=== PATIENT | male | born 1975 | race Caucasian/White ===

== ENCOUNTER 2022-08-21 11:28 | Outpatient (CLI) | payer OTHER, SELFPAY ==
--- NOTE | ~2022-08-21 | XR_ITS ---
XR lumbar spine min 4V DATE: 08/21/2022 12:03 INDICATION: Right low back pain TECHNIQUE: AP, lateral, bilateral oblique views, coned lateral lumbosacral view COMPARISON: None FINDINGS: There are bilateral L5 pars intra-articular is defects with associated grade 1 anterolisthe sis at L5 as one. Mild degenerative disease at L2-3, L3-4 and moderately prominent degenerative disc disease at L4-5 an d L5-S1. Included lower thoracic and lumbar pedicles are intact. The lumbar spine fracture or bone destruction is noted. The sacroiliac joints are intact. IMPRESSION: Bilateral L5 pars interarticularis defects and associated grade 1 anterolisthesis at L5-S 1 Moderately prominent degenerative disease at L4-5 and L5-S1, mild degenerative disease at L2-3 and L3 -4 Reviewed, dictated and finalized at location L. T SALES MANAGER IMPRESSION: Bilateral L5 pars interarticularis defects and associated grade 1 a nterolisthesis at L5-S1 Moderately prominent degenerative disease at L4-5 and L5-S1, mild degenerative disease at L2-3 and L3-4
== END 2022-08-21 11:29 | disposition home or self-care (01) ==
PROVIDERS: PCP Family Medicine; Visit Provider Family Medicine
DX: M53.3 Sacrococcygeal disorders, not elsewhere classified (principal); M54.16 Radiculopathy, lumbar region; M51.36 Other intervertebral disc degeneration, lumbar region
CPT/HCPCS: 72110

== ENCOUNTER 2022-09-30 09:26 | Outpatient (CLI) | payer OTHER, SELFPAY ==
--- NOTE | ~2022-09-30 | XR_ITS ---
XR cervical spine 4-5V 09/30/2022 09:57 Indication: Neck pain and tingling Procedure: 5 view cervical spine Comparison: No prior studies for comparison. Findings: There is straightening of cervical lordosis. No prevertebral soft tissue swelling. There is facet hypertrophy at C3-4, C4-5 and C5-6. No significant uncinate abnormalities. No fracture or trau matic malalignment. Lung apices are unremarkable. Impression: 1: Moderate cervical spondylosis primarily involving the facet joints. Reviewed, dictated and finalized at location L. LOGY TECHNICIAN Impression: 1: Moderate cervical spondylosis primarily involving the facet joints.
== END 2022-09-30 09:27 | disposition home or self-care (01) ==
PROVIDERS: PCP Family Medicine; Visit Provider Family Medicine
DX: M47.22 Other spondylosis with radiculopathy, cervical region (principal)
CPT/HCPCS: 72050

== ENCOUNTER 2023-11-04 01:11 | Day surgery (SDC) | payer OTHER, SELFPAY ==
[2023-10-26 09:56] VITALS: BMI 34.2
--- NOTE | 2023-11-02 12:41 | SUR.PREOP ---
Patient called regarding upcoming procedure. Voicemail left regarding appointment times.
[2023-11-04 10:36] VITALS: BP 135/88; PULSE 64; RESP 16; TEMP 36.1; O2SAT 98; BMI 34.4
--- NOTE | 2023-11-04 10:51 | WPDANESEPPF ---
Anes - Initial Pre Proc Eval Procedure: Operation Date: 11/04/23 12:30 Proposed Procedures p Esophagogastroduodenoscopy - Donavan Pruitt MD Date/Time: 11/04/23 10:51 Surgeon: Donavan Pruitt MD Pre Op Diagnosis: vomiting,Epigastric pain Patient Data Age: 48 Gender: M Height: 1.68 m Weight: 96.9 kg Last Vital Signs Temp 97.0 F L 11/04/23 10:36 Pulse 64 11/04/23 10:36 Resp 16 11/04/23 10:36 BP 135/88 11/04/23 10:36 Pulse Ox 98 11/04/23 10:36 O2 Del Method Room Air 11/04/23 10:36 Allergies Allergy/AdvReac Type Severity Reaction Status Date / Time ketoconazole Allergy Mild rash Verified 11/04/23 10:43 Penicillins Allergy Mild hives Verified 11/04/23 10:43 NKFA Allergy Unknown unknown Uncoded 11/04/23 10:43 Home Medications Medication Instructions Recorded Confirmed Type lisinopril 10 mg tablet 10 mg PO DAILY #90 tabs 07/31/23 11/04/23 Rx albuterol sulfate 90 mcg/actuation 2 inh inhalation .before exercises 09/08/23 11/04/23 Rx aerosol inhaler #8.5 grams baclofen 10 mg PO TID 10/26/23 11/04/23 History gabapentin 300 mg capsule 300 mg PO TID 10/26/23 11/04/23 History pantoprazole 40 mg tablet,delayed 40 mg PO DAILY 10/26/23 11/04/23 History release tizanidine 4 mg tablet 4 mg PO DAILY 10/26/23 11/04/23 History Patient hx anesthesia problems: none Family hx anesthesia problems: none Results Review: All pre-operative results and documents have been reviewed as part of the pre-operative evaluation. [facility] Past Medical History Medical History Exercise induced bronchospasm Family History Family History Mother Hypertension Grandparent Cerebrovascular accident, Onset Age: 63 Other Hyperlipidemia Social History Social History Social History: Years smoked: 20 Smoking status: Former smoker Tobacco type: cigarettes Second hand tobacco smoke exposure: No Alcohol intake: current Drinks per week: 12 Substance use: current Substance use type: marijuana Last use: 10/23/23 Lack of Transportation: No Lack of Food: Never True Current Housing: I Have Housing Concerned About Future Housing: No Difficulty Paying Gas/Electric Bills: No Difficulty Paying for Meds: No Currently Unemployed: No Education: Decline to Answer Difficulty w/ Childcare or Family Care: No Living arrangements: with family Occupation/Education: occupation Gender identity (if verbalized by the patient): Male Sexual Orientation (if Verbalized by the Patient): Straight or Heterosexual Spiritual care concerns: No Anes - Eval Final PreProcedure Day of Procedure 11/04/23 10:51 Patient weight: obese Heart: regular rate and rhythm Lungs: clear to auscultation Airway: Mallampati scale class II Neurological: alert and oriented Last oral intake: >/= 8 hours ASA classification: III Emergent: no Anesthetic plan: proceed Anesthesia type and monitoring: general GIVS and standard monitoring Results Review: All pre-operative results and documents have been reviewed as part of the pre-operative evaluation. Informed Consent: The patient's anesthetic plan and its attendant risks and benefits were discussed with the patient/family/POA. Questions were solicited and answers provided to the satisfaction of the patient/family/POA.
[2023-11-04] MEDS: LACTATED RINGERS 1,000 ML 150 ML IV CONT (11:03)
--- NOTE | 2023-11-04 11:27 | PM.HPGS ---
History of Present Illness History of Present Illness Consent: Risks, benefits, and alternatives have been discussed and questions answered. Patient agrees to proceed with procedure. Chief complaint: vomiting,Epigastric pain Narrative: Elio Chicas is a 48 year old male with cyclic vomiting every 3 months, this has been going on for 1 year, on pantoprazole that helps some. When he has violent n/v will last 1 day followed by sweating for another day. He smokes marijuana on the weekends. Review of Systems Review of Systems: All systems reviewed & are unremarkable except as noted in HPI and below PMFSH Past Medical History Medical History (Updated 11/04/23 @ 11:28 by Donavan Pruitt MD) Cyclic vomiting syndrome Exercise induced bronchospasm Family History Family History Mother Hypertension Grandparent Cerebrovascular accident, Onset Age: 63 Other Hyperlipidemia Social History Social History Social History: Years smoked: 20 Smoking status: Former smoker Tobacco type: cigarettes Second hand tobacco smoke exposure: No Alcohol intake: current Drinks per week: 12 Substance use: current Substance use type: marijuana Last use: 10/23/23 Lack of Transportation: No Lack of Food: Never True Current Housing: I Have Housing Concerned About Future Housing: No Difficulty Paying Gas/Electric Bills: No Difficulty Paying for Meds: No Currently Unemployed: No Education: Decline to Answer Difficulty w/ Childcare or Family Care: No Living arrangements: with family Occupation/Education: occupation Gender identity (if verbalized by the patient): Male Sexual Orientation (if Verbalized by the Patient): Straight or Heterosexual Spiritual care concerns: No Meds Home Medications and Allergies Home Medications Medication Instructions Recorded Confirmed Type lisinopril 10 mg tablet 10 mg PO DAILY #90 tabs 07/31/23 11/04/23 Rx albuterol sulfate 90 mcg/actuation 2 inh inhalation .before exercises 09/08/23 11/04/23 Rx aerosol inhaler #8.5 grams baclofen 10 mg PO TID 10/26/23 11/04/23 History gabapentin 300 mg capsule 300 mg PO TID 10/26/23 11/04/23 History pantoprazole 40 mg tablet,delayed 40 mg PO DAILY 10/26/23 11/04/23 History release tizanidine 4 mg tablet 4 mg PO DAILY 10/26/23 11/04/23 History Allergies Allergy/AdvReac Type Severity Reaction Status Date / Time ketoconazole Allergy Mild rash Verified 11/04/23 10:43 Penicillins Allergy Mild hives Verified 11/04/23 10:43 NKFA Allergy Unknown unknown Uncoded 11/04/23 10:43 Vital Signs Vital Signs - 24 hr 11/04/23 10:36 Temperature 97.0 F L Pulse Rate 64 Respiratory Rate 16 Blood Pressure 135/88 Pulse Oximetry 98 Oxygen Delivery Room Air Exam Const: General: comfortable and no acute distress HENMT: Face/Nose/Sinus: Normal nares present Eyes: General: appearance normal, both eyes and all related structures Neck: Neck: no JVD Resp: Auscultation: clear to auscultation bilaterally Cardio: Rate: regular rate Rhythm: regular rhythm GI: Inspection: non-distended GI Palp: Yes Soft to palpation Skin: General skin exam: normal color Neuro: General: gait normal Speech: normal speech Extrem: General: normal to inspection Psych: Mental Status: mental status grossly normal Assessment and Plan Assessment and plan (1) Cyclic vomiting syndrome: Code(s): R11.15 - Cyclical vomiting syndrome unrelated to migraine Status: Acute Assessment and Plan: egd with biopsies wonder if could be related to marijuana use
[2023-11-04 11:46] VITALS: BP 111/68; PULSE 62; RESP 18; TEMP 36.1; O2SAT 98
[2023-11-04 11:56] VITALS: BP 120/77; PULSE 66; RESP 14; O2SAT 99
[2023-11-04 12:06] VITALS: BP 133/75; PULSE 58; RESP 14; O2SAT 100
== END 2023-11-04 12:19 | disposition home or self-care (01) ==
PROVIDERS: PCP Family Medicine; Visit Provider Internal Medicine Gastroenterology
PROC: 0DJ08ZZ Inspection of Upper Intestinal Tract, Via Natural or Artificial Opening Endoscopic (ICD-10-PCS; CPT 43235; principal; 2023-11-04 12:30)
DX: R11.15 Cyclical vomiting syndrome unrelated to migraine (principal); F12.90 Cannabis use, unspecified, uncomplicated; Z87.891 Personal history of nicotine dependence; Z79.51 Long term (current) use of inhaled steroids; E66.9 Obesity, unspecified; Z68.34 Body mass index [BMI] 34.0-34.9, adult
CPT/HCPCS: 43239; 88305; J2704; J7120

== ENCOUNTER 2025-05-25 02:30 | Day surgery (SDC) | payer OTHER, SELFPAY ==
[2025-05-18 13:40] VITALS: BMI 31.8
--- OUTSIDE RECORDS SUMMARY | 2025-05-25 02:34 | XMS_ITS | Clinical Summary ---
Author Organization [facility] [address] Address [address] [place] [address] Care Team Providers Care Bell Ringer Name Role Phone Jaquelin Burks MD Primary Care Provider Allergies Active Allergy Reactions Criticality Noted Date Comments Penicillins Medications albuterol HFA (PROVENTIL HFA,VENTOLIN HFA,PROAIR HFA) 90 mcg/actuation inhaler Inhale 1 puff every 8 (eight) hours as needed for wheezing [address] (PROTONIX) 40 mg EC tablet Take 1 tablet (40 mg total) by mouth daily Active acetaminophen 500 mg capsule Take 2 capsules (1,000 mg total) by mouth every 6 (six) hours 120 tablet 3 Active Additional Information Patient taking differently:1,000 mg oral Every 6 hours,PRN FOR PAIN, Informant: Self, Reported on 12/24/2023 lisinopriL (PRINIVIL,ZESTR VA) 10 mg tablet 4 Active Active Problems Problem Noted Date Diagnosed Date S/P lumbar fusion 06/22/2023 S/P lumbar spinal fusion 06/22/2023 At risk for obstructive sleep apnea 06/17/2023 Asthma 06/17/2023 Smoker 06/17/2023 Spondylolisthesis of lumbar region 05/29/2023 Spondylolisthesis of lumbosacral region 03/24/20 Spinal stenosis of lumbar region with radiculopa thy 03/24/2023 Essential hypertension 07/30/2020 BMI 32.0-32.9,adult 07/30/2020 Immunizations Immunization Administration Dates Next Due Influenza, Quadrivalent, Spl it, Preservative Free, Intramuscular 06/25/2023(Deferred: Patient Refused) Surgical History Surgery Date Site/Laterality Comments VASECTOMY WISDOM TOOTH EXTRACTION SPINAL FUSION 06/23/2023 PSF L4-S1 Medical History Medical History Date Comments Hypertension Hypertension Heart murmur Asthma Atrial septal aneurysm Per Dr. Christy raymundo: no color flow across the septum to suggest ASD. The right heart chambers are normal in size. Normal function GERD (gastroesophageal reflux disease) Family History Medical History Relation Name Comments No Known Problems Father Stroke Maternal Grandfather Stefano Callejas Alzheimer's disease Maternal Grandmother uLcia Callejas No Known Problems Mother Relation Name Status Comments Father Alive Maternal Grandfather Stefano Callejas Maternal Grandmother Lucia Callejas Mother Alive Social History Tobacco Use Types Packs/Day Years Used Date Smoking Tobacco: Former Cigarettes 0.5 24 0 08/03/1993 - 08/03/2017 Smokeless Tobacco: Never Tobacco Cessation:Counseling Given: Not Answered Comments:Still chewing nicotine gum. Ready to quit Alcohol Use Standard Drinks/Week Comments Yes 6 (1 standard drink = 0.6 oz pur e alcohol) 4-6 AUDIT-C Answer Date Recorded Q1: How often do you have a drink containing alc ohol? 2-3 times a week 06/22/2023 Average Number of Drinks Not on file 023 Frequency of Binge Drinking Not on file 06/04 Personal Safety Answer Date Recorded Have you ever been in or are you currently in a harmful physical or emotional relationship or is someone making you feel afraid or unsafe? 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 Gender Identity Not on file Sexual Orientation Not on file Obstetrics History Last Filed Vital Signs Vital Sign Reading Time Taken Comments Blood Pressure 143/76 06/25/2023 7:40 AM EQUAL OPPORTUNITY SPECIALIST Pulse 83 06/25/2023 7:40 AM EQUAL OPPORTUNITY SPECIALIST Temperature 37.2 C (98.9 F) 06/25/2023 7:40 AM EQUAL OPPORTUNITY SPECIALIST Respiratory Rate 16 06/25/2023 7:40 AM EQUAL OPPORTUNITY SPECIALIST Oxygen Saturation 97% 06/25/2023 7:40 AM EQUAL OPPORTUNITY SPECIALIST Inhaled Oxygen Concentration - - Weight 89.3 kg (196 lb 12.8 oz) 06/22/2023 5:00 AM EQUAL OPPORTUNITY SPECIALIST Height 170.2 cm (5' 7) 06/22/2023 5:00 AM EQUAL OPPORTUNITY SPECIALIST Body Mass Index 30.82 06/22/2023 5:00 AM EQUAL OPPORTUNITY SPECIALIST Plan of Treatment Health Maintenance Due Date Last Done Comments Colon Cancer Screening-Colonoscopy 1975 Depression Screening 1975 Hepatitis C Screening 1975 DTaP/Tdap/Td Vaccine (1 - Tdap) 1986 Hepatitis B Screening 1993 Regular Well Visit/Exam 18-64 1993 Pneumococcal vaccine <65 (1 of 2 - PCV) 1994 Covid-19 Vaccine (3 - season) 2025, 11/22/2020 Influenza Vaccine (#1) 2025 Medical Devices Implanted Type Area Rubber Curer Device Identifier Shelf Expiration Date Model / Serial / Lot Allosource Freeze Dried Crushed 1-4mm Graft 15ml Bone Cancellous [id number] - [id number] Implanted:Qty : 1 on 06/22/2023 by Catracho Perkins MD at [facility] Bone N/A: Spine Lumbar Allosource 02/20/2027 [id number] / / [id number] Description:Implant pause pe rformed Allosource 1-4mm Freeze Dried Crushed Graft 30ml Bone Cancellous [id number] - [id number] Implanted:Qty : 1 on 06/23/2023 by Catracho Perkins MD at [facility] Bone N/A: Spine Lumbar Allosource 06/30/2027 [id number] / / [id number] Description:Implant pause pe rformed Allosource 1-4mm Freeze Dried Crushed Graft 30ml Bone Cancellous [id number] - [id number] Implanted:Qty : 1 on 06/23/2023 by Catracho Perkins MD at [facility] Bone N/A: Spine Lumbar Allosource 03/07/2027 [id number] / / [id number] Description:Implant pause pe rformed Med[employer]onic [employer] Bmp Infuse Sm [id number] - [id number] Implanted:Qty : 1 on 06/22/2023 by Catracho Perkins MD at [facility] Other - see comments N/A: Spine Lumbar Medtronic Inc 01/01/2025 [id number] / / [id number] Description:Implant pause pe rformed [employer] Spacer [place] [id number] 15mm 25deg 1212.0915s - [id number] Implanted:Qty : 1 on 06/22/2023 by Catracho Perkins MD at [facility] Other - see comments N/A: Spine Lumbar [employer] [id number] 06/03/2031 1212.0915S / / [id number] Description:Implant pause pe rformed [employer] Bmp Infuse Sm [id number] - [id number] Implanted:Qty : 1 on 06/23/2023 by Catracho Perkins MD at [facility] Other - see comments N/A: Spine Lumbar Medtronic Inc 01/01/2025 [id number] / / [id number] Description:Implant pause pe rformed [employer] Creo Thread Spinal Cap Locking Nonsterile 1119.0010 - [id number] Implanted:Qty : 7 on 06/23/2023 by Catracho Perkins MD at [facility] Other - see comments N/A: Spine Lumbar [employer] 1119.0010 / / Description:Implant pause pe rformed [employer] Creo Od6.5 Mm L50 Mm Thread Polyaxial Spine Screw Bone Titanium 5146.1652 - [id number] Implanted:Qty : 3 on 06/23/2023 by Catracho Perkins MD at [facility] Screw N/A: Spine Lumbar [employer] 5146.1652 / / Description:Implant pause pe rformed [employer] Creo Od6.5 Mm L55 Mm Thread Polyaxial Spine Screw Bone Titanium 5146.1657 - [id number] Implanted:Qty : 3 on 06/23/2023 by Catracho Perkins MD at [facility] Screw N/A: Spine Lumbar [employer] 5146.1657 / / Description:Implant pause pe rformed 27mm [place] Implanted:Qty : 3 on 06/22/2023 by Catracho Perkins MD at [facility] N/A: Spine Lumbar GLOBUS 1135.0027 / / Description:Implant pause pe rformed 6.0 X70 Edson Implanted:Qty : 1 on 06/23/2023 by Catracho Perkins MD at [facility] N/A: Spine Lumbar GLOBUS 1120.3070 / / Description:Implant pause pe rformed [employer] Creo Od8.5 Mm L80 Mm Thread Polyaxial Spine Screw Bone Titanium 5146.1882 - [id number] Implanted:Qty : 1 on 06/23/2023 by Catracho Perkins MD at [facility] N/A: Spine Lumbar [employer] 5146.1882 / / Description:Implant pause pe rformed 6.0x90 Edson Implanted:Qty : 1 on 06/23/2023 by Catracho Perkins MD at [facility] N/A: Spine Lumbar GLOBUS 1120.3090 / / Description:Implant pause pe rformed Insurance [facility] Advance Directives For more information, please contact: [phone] * Full Code (Latest Code Status on File) Date Activated Date Inactivated Comments 06/22/2023 11:11 AM 06/25/2023 2:33 PM Care Teams Bell Ringer Relationship Specialty Start Date End Date Jaquelin Burks MD [address] [facility] [address] [place] [address] PCP - General 03/28/13
--- OUTSIDE RECORDS SUMMARY | 2025-05-25 02:34 | XMS_ITS | Clinical Summary ---
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
[2025-05-25 08:03] VITALS: BP 129/70; PULSE 69; RESP 18; TEMP 35.6; O2SAT 98; BMI 31.8
[2025-05-25] MEDS: LACTATED RINGERS 1,000 ML 150 ML IV CONT (08:18)
--- NOTE | 2025-05-25 09:11 | WPDANESEPPF ---
Anes - Initial Pre Proc Eval Procedure: Operation Date: 05/25/25 09:00 Proposed Procedures p Screening Colonoscopy - Donavan Pruitt MD Date/Time: 05/25/25 09:11 Surgeon: Donavan Pruitt MD Pre Op Diagnosis: Screening Patient Data Age: 49 Gender: M Height: 1.7 m Weight: 92.1 kg Last Vital Signs Temp 96.1 F L 05/25/25 08:03 Pulse 69 05/25/25 08:03 Resp 18 05/25/25 08:03 BP 129/70 05/25/25 08:03 Pulse Ox 98 05/25/25 08:03 O2 Del Method Room Air 05/25/25 08:03 Allergies Allergy/AdvReac Type Severity Reaction Status Date / Time ketoconazole Allergy Mild rash Verified 05/25/25 08:08 Penicillins Allergy Mild hives Verified 05/25/25 08:08 NKFA Allergy Unknown unknown Uncoded 12/14/24 15:01 Home Medications ?Medication ?Instructions ?Recorded ?Confirmed ?Type lisinopril 10 mg tablet 10 mg PO DAILY #90 tabs 03/13/25 05/25/25 Rx albuterol sulfate 90 mcg/actuation See Rx Instructions .Route Q4-6H 05/23/25 05/25/25 Rx aerosol inhaler #8.5 grams Patient hx anesthesia problems: none Family hx anesthesia problems: none Results Review: All pre-operative results and documents have been reviewed as part of the pre-operative evaluation. [facility] Past Medical History Medical History Lipid screening Elevated blood pressure reading COPD (chronic obstructive pulmonary disease) Cyclic vomiting syndrome Exercise induced bronchospasm Surgical History Surgical History History of back surgery Family History Family History Mother Hypertension Grandparent Cerebrovascular accident, Onset Age: 63 Other Hyperlipidemia Social History Social History Social History: Years smoked: 20 Smoking status: Current some day smoker Tobacco type: cigarettes Second hand tobacco smoke exposure: No Alcohol intake: current Drinks per week: 4 Substance use: current Substance use type: marijuana Other substance usage details: Occasional use of gummies and smoking marijuana Last use: 10/23/23 Do You Feel Safe in your Home?: Yes Lack of Transportation: No Lack of Food: Never True Current Housing: I Have Housing Concerned About Future Housing: No Difficulty Paying Gas/Electric Bills: No Difficulty Paying for Meds: No Currently Unemployed: No Education: Decline to Answer Difficulty w/ Childcare or Family Care: No Living arrangements: with family Additional living arrangements comments: with sp Occupation/Education: occupation Gender identity (if verbalized by the patient): Male Sexual Orientation (if Verbalized by the Patient): Straight or Heterosexual Spiritual care concerns: No Anes - Eval Final PreProcedure Day of Procedure 05/25/25 09:11 Patient weight: obese Heart: regular rate and rhythm Lungs: clear to auscultation Airway: Mallampati scale class II Neurological: alert and oriented Last oral intake: >/= 8 hours ASA classification: III Anesthetic plan: proceed Anesthesia type and monitoring: general GIVS Results Review: All pre-operative results and documents have been reviewed as part of the pre-operative evaluation. Informed Consent: The patient's anesthetic plan and its attendant risks and benefits were discussed with the patient/family/POA. Questions were solicited and answers provided to the satisfaction of the patient/family/POA.
--- NOTE | 2025-05-25 09:12 | PM.HPGS ---
History of Present Illness History of Present Illness Consent: Risks, benefits, and alternatives have been discussed and questions answered. Patient agrees to proceed with procedure. Chief complaint: Screening Narrative: Elio Chicas is a 49 year old male here for first screening colonoscopy Review of Systems Review of Systems: All systems reviewed & are unremarkable except as noted in HPI and below PMFSH Past Medical History Medical History (Updated 05/25/25 @ 09:13 by Donavan Pruitt MD) Colon cancer screening Lipid screening Elevated blood pressure reading COPD (chronic obstructive pulmonary disease) Cyclic vomiting syndrome Exercise induced bronchospasm Surgical History Surgical History History of back surgery Family History Family History Mother Hypertension Grandparent Cerebrovascular accident, Onset Age: 63 Other Hyperlipidemia Social History Social History Social History: Years smoked: 20 Smoking status: Current some day smoker Tobacco type: cigarettes Second hand tobacco smoke exposure: No Alcohol intake: current Drinks per week: 4 Substance use: current Substance use type: marijuana Other substance usage details: Occasional use of gummies and smoking marijuana Last use: 10/23/23 Do You Feel Safe in your Home?: Yes Lack of Transportation: No Lack of Food: Never True Current Housing: I Have Housing Concerned About Future Housing: No Difficulty Paying Gas/Electric Bills: No Difficulty Paying for Meds: No Currently Unemployed: No Education: Decline to Answer Difficulty w/ Childcare or Family Care: No Living arrangements: with family Additional living arrangements comments: with sp Occupation/Education: occupation Gender identity (if verbalized by the patient): Male Sexual Orientation (if Verbalized by the Patient): Straight or Heterosexual Spiritual care concerns: No Meds Home Medications and Allergies Home Medications ?Medication ?Instructions ?Recorded ?Confirmed ?Type lisinopril 10 mg tablet 10 mg PO DAILY #90 tabs 03/13/25 05/25/25 Rx albuterol sulfate 90 mcg/actuation See Rx Instructions .Route Q4-6H 05/23/25 05/25/25 Rx aerosol inhaler #8.5 grams Allergies Allergy/AdvReac Type Severity Reaction Status Date / Time ketoconazole Allergy Mild rash Verified 05/25/25 08:08 Penicillins Allergy Mild hives Verified 05/25/25 08:08 NKFA Allergy Unknown unknown Uncoded 12/14/24 15:01 Vital Signs Vital Signs - 24 hr 05/25/25 08:03 Temperature 96.1 F L Pulse Rate 69 Respiratory Rate 18 Blood Pressure 129/70 Pulse Oximetry 98 Oxygen Delivery Room Air Exam Const: General: comfortable and no acute distress HENMT: Face/Nose/Sinus: Normal nares present Eyes: General: appearance normal, both eyes and all related structures Neck: Neck: no JVD Resp: Auscultation: clear to auscultation bilaterally Cardio: Rate: regular rate Rhythm: regular rhythm GI: Inspection: non-distended GI Palp: Yes Soft to palpation Skin: General skin exam: normal color Extrem: General: normal to inspection Psych: Mental Status: mental status grossly normal Assessment and Plan Assessment and plan (1) Colon cancer screening: Code(s): Z12.11 - Encounter for screening for malignant neoplasm of colon Status: Acute Assessment and Plan: colonoscopy
--- NOTE | 2025-05-25 09:25 | S_PTH ---
PATIENT: Elio Chicas LOC: [facility]#:[id number] AGE/SX: 49/M ROOM: RE05/25/[address]: Donavan Pruitt MD : 1975 BED: DIS: 05/25/2025 SPEC #: [id number] RECD: 05/25/25 11:34 STATUS: KRISTIN REQ #: [id number] MONSE: 05/25/25 09:[address]: Donavan Pruitt DEPT: [facility] Surgical RECD BY: Leidy Hopper ENTERED: 05/25/25 11:34 SP TYPE: Surgical OTHR DR: Aryan Lyman MD Tissues: A - Colon Polypectomy Procedures: Hematoxylin and Eosin Stain Gross and Microscopic Level 4
[2025-05-25 09:30] VITALS: BP 97/61; PULSE 60; RESP 16; O2SAT 97
[2025-05-25 09:40] VITALS: BP 96/64; PULSE 60; RESP 16; O2SAT 98
[2025-05-25 09:50] VITALS: BP 115/62; PULSE 62; RESP 16; O2SAT 98
== END 2025-05-25 09:53 | disposition home or self-care (01) ==
PROVIDERS: PCP Family Medicine; Referring Provider Physician Assistant; Visit Provider Internal Medicine Gastroenterology
PROC: 0DJD8ZZ Inspection of Lower Intestinal Tract, Via Natural or Artificial Opening Endoscopic (ICD-10-PCS; CPT 45378; principal; 2025-05-25 09:00)
DX: Z12.11 Encounter for screening for malignant neoplasm of colon (principal); D12.5 Benign neoplasm of sigmoid colon; K64.8 Other hemorrhoids; K57.30 Diverticulosis of large intestine without perforation or abscess without bleeding; R03.0 Elevated blood-pressure reading, without diagnosis of hypertension; J44.9 Chronic obstructive pulmonary disease, unspecified; R11.15 Cyclical vomiting syndrome unrelated to migraine; J45.990 Exercise induced bronchospasm; F17.210 Nicotine dependence, cigarettes, uncomplicated; F12.90 Cannabis use, unspecified, uncomplicated; E66.9 Obesity, unspecified; Z68.31 Body mass index [BMI] 31.0-31.9, adult; Z79.51 Long term (current) use of inhaled steroids; Z98.1 Arthrodesis status
CPT/HCPCS: 45380; 88305; J2003; J2704; J7120